=== PATIENT | male | born 1980 | race Two or more races ===

== ENCOUNTER 2024-05-14 11:46 | Inpatient (IN) | payer OTHER ==
[~2024-05-14] VITALS: Ht 180.3 cm; Wt 125.5 kg
[2024-05-14 13:36] LABS: Basophils # (auto) 0.1 10 ^3/uL (0-0.2); Basophils % (auto) 1.5 % (0.0-2.0); Eosinophils # (auto) 0.5 10 ^3/uL (0-0.8); Eosinophils % (auto) 6.4 % (0.0-7.0); Hematocrit 37.7 % (41.0-53.0); Hemoglobin 12.2 g/dL (13.5-17.5); Lymphocytes # (auto) 1.3 10 ^3/uL (0.4-5.4); Lymphocytes % (auto) 17.1 % (10.0-50.0); Mean Corpuscular Hemoglobin 26.7 pg (28.0-32.0); Mean Corpuscular Hgb Conc. 32.4 g/dL (32.0-36.0); Mean Corpuscular Volume 82.4 fL (80.0-100.0); Monocytes # (auto) 0.8 10 ^3/uL (0-1.3); Monocytes % (auto) 10.2 % (0.0-12.0); Neutrophils # (auto) 5.1 10 ^3/uL (1.6-8.6); Neutrophils % (auto) 64.8 % (37.0-80.0); Platelet Count (auto) 153 10^3/uL (140-450); Red Blood Cells 4.57 10^6/uL (4.5-5.90); Red Cell Distribution Width 20.9 % (11.8-14.3); White Blood Cell 7.8 10^3/uL (4.4-10.8)
[2024-05-14 13:45] LABS: Chloride 100 mmol/L (98-107); Potassium 4.6 mmol/L (3.5-5.1); Sodium 139 mmol/L (136-145)
[2024-05-14 13:46] LABS: Anion Gap 15 (5-15); Carbon Dioxide 24 mmol/L (20-31)
[2024-05-14 13:47] LABS: Calcium 9.2 mg/dL (8.7-10.4)
[2024-05-14 13:51] LABS: Glucose 53 mg/dL (74-106)
[2024-05-14 13:52] LABS: BUN/Creatinine Ratio 5.5 (10.0-20.0); Blood Urea Nitrogen 56 mg/dL (9-23); Magnesium 2.4 mg/dL (1.6-2.6)
[2024-05-14 13:54] LABS: Phosphorus 7.5 mg/dL (2.4-5.1)
[2024-05-14 13:57] LABS: Hepatitis B Surface Antibody Positive (Negative)
[2024-05-14 14:09] LABS: Hepatitis B Surface Antigen Negative (Negative)
[2024-05-14 14:30] LABS: Hepatitis C Antibody Negative (Negative)
[2024-05-14 16:09] VITALS: PULSE 99; RESP 18; O2SAT 96
[2024-05-14 20:00] VITALS: TEMP 97.6
[2024-05-14] MEDS: LORazepam 2MG/ML-1ML VIAL IV ONE (21:07)
[2024-05-14 21:34] VITALS: PULSE 97; RESP 20; O2SAT 95
[2024-05-14] MEDS ORDERED: HYDROcodone-ACET 5/325MG TAB PO PRN (23:00)
[2024-05-14] MEDS ORDERED: ONDANSETRON HCL 4 MG/2 ML VIAL IV PRN (23:00)
[2024-05-14] MEDS ORDERED: DOCUSATE SOD 100 MG CAP PO PRN (23:00)
[2024-05-14] MEDS ORDERED: DEXTROSE (50%) 50ML SYRG IV PRN (23:00)
[2024-05-14] MEDS ORDERED: ACETAMINOPHEN 325 MG TAB PO PRN (23:00)
[2024-05-14] MEDS ORDERED: NITROGLYCERIN 0.4 MG SL TAB SL PRN (23:30)
[2024-05-14] MEDS ORDERED: MORPHINE SULFATE INJ 2 MG/ml SYRG IV PRN (23:30)
[2024-05-15] MEDS: ACCU-CHEK COMFORT CURVE STRIP VI SCH (06:52)
[2024-05-15] MEDS: InsuLIN REG 1unit/0.01ml Soln (100units/ml) SC SCH (06:52)
[2024-05-15 06:56] LABS: Albumin 4.4 g/dL (3.2-4.8); Alkaline Phosphatase 96 U/L (46-116); Anion Gap 14 (5-15); Aspartate Aminotransferase 12 U/L (13-40); BUN/Creatinine Ratio 4.4 (10.0-20.0); Blood Urea Nitrogen 48 mg/dL (9-23); Calcium 8.5 mg/dL (8.7-10.4); Carbon Dioxide 21 mmol/L (20-31); Chloride 98 mmol/L (98-107); Glucose 92 mg/dL (74-106)
[2024-05-15 06:57] LABS: Alanine Aminotransferase 9 U/L (7-40); Bilirubin, Total 0.7 mg/dL (0.2-1.0); Sodium 133 mmol/L (136-145); Total Protein 7.9 g/dL (5.7-8.2)
[2024-05-15 07:01] LABS: Basophils # (auto) 0.1 10 ^3/uL (0-0.2); Basophils % (auto) 0.7 % (0.0-2.0); Eosinophils # (auto) 0.4 10 ^3/uL (0-0.8); Eosinophils % (auto) 5.1 % (0.0-7.0); Hematocrit 38.6 % (41.0-53.0); Hemoglobin 12.1 g/dL (13.5-17.5); Lymphocytes % (auto) 13.2 % (10.0-50.0); Mean Corpuscular Hemoglobin 27.5 pg (28.0-32.0); Mean Corpuscular Hgb Conc. 31.4 g/dL (32.0-36.0); Mean Corpuscular Volume 87.8 fL (80.0-100.0); Monocytes # (auto) 0.8 10 ^3/uL (0-1.3); Monocytes % (auto) 10.1 % (0.0-12.0); Neutrophils # (auto) 5.5 10 ^3/uL (1.6-8.6); Neutrophils % (auto) 70.9 % (37.0-80.0); Platelet Count (auto) 126 10^3/uL (140-450); Red Blood Cells 4.39 10^6/uL (4.5-5.90); Red Cell Distribution Width 21.9 % (11.8-14.3); White Blood Cell 7.7 10^3/uL (4.4-10.8)
[2024-05-15] MEDS: SODIUM BICARB 8.4% 50Meq/50ml SYR INJ IV ONE (07:15)
[2024-05-15] MEDS: FUROSEMIDE 20 MG/2 ML VIAL IV ONE (08:11)
[2024-05-15] MEDS: SEVELAMER 800 MG TAB PO SCH (08:12)
[2024-05-15] MEDS: SODIUM ZIRCONIUM CYCL 10 GM PAK PO ONE (08:12)
[2024-05-15] MEDS: B-COMPLEX W/ C & FOLIC ACID(NEPHROVITE TAB) PO SCH (10:10)
[2024-05-15 11:47] VITALS: BP 109/75
[2024-05-15 13:30] VITALS: PULSE 99; RESP 18; O2SAT 99
[2024-05-15] MEDS ORDERED: SEVE800T7 PO (15:35)
[2024-05-15] MEDS ORDERED: SEVELAMER 800 MG TAB PO SCH (18:00)
[2024-05-17 07:06] LABS: QuantiFERON-TB Gold Plus Negative (Negative)
== END 2024-05-15 15:04 | disposition home or self-care (01) | DRG 640 ==
LOC: ER 11:55 → TELE 23:22 → TELE-WESTW 05-15 14:49
PROVIDERS: ADMIT Nurse Practitioner Family; ATTEND Student in an Organized Health Care Education/Training Program
DX: E87.70 Fluid overload, unspecified (principal); J81.0 Acute pulmonary edema; N18.6 End stage renal disease; I12.0 Hypertensive chronic kidney disease with stage 5 chronic kidney disease or end stage renal disease; N17.9 Acute kidney failure, unspecified; E87.5 Hyperkalemia; E11.649 Type 2 diabetes mellitus with hypoglycemia without coma; E83.39 Other disorders of phosphorus metabolism; E11.22 Type 2 diabetes mellitus with diabetic chronic kidney disease; I51.7 Cardiomegaly; Z88.0 Allergy status to penicillin; Z99.2 Dependence on renal dialysis
CPT/HCPCS: 36415; 71046; 80048; 80053; 82962; 83036; 83735; 84100; 84484; 85025; 86706; 86803; 87340; 90935; 93005; G0378; J1815